=== PATIENT | female | born 1995 | race Caucasian/White ===

== ENCOUNTER 2023-10-19 04:50 | Emergency (ER) | payer BC ==
[~2023-10-19] VITALS: Ht 172.7 cm; Wt 95.5 kg
[2023-10-19 04:56] VITALS: TEMP 97.1
[2023-10-19] MEDS ORDERED: NS 1,000 ML IV ONE (05:15)
[2023-10-19] MEDS ORDERED: Dicyclomine 10 MG/ML 2 ML VIAL IM ONE (05:15)
[2023-10-19] MEDS ORDERED: Sucralfate Susp 1 GM/10 ML UD PO ONE (05:15)
[2023-10-19 06:01] LABS: BASO % 0.3 % (0.0-2.0); EOS % 0.3 % (0.0-4.0); GRAN # 7.3 K/mm3 (1.4-6.5); GRAN % 79.2 % (42.2-75.2); HEMATOCRIT 43.1 % (37.0-47.0); HEMOGLOBIN 14.4 g/dl (12.5-16.0); LYMPH # 1.3 K/mm3 (1.2-3.4); LYMPH % 14.1 % (20.0-51.0); MEAN CELL VOLUME 87 fl (80.0-100.0); MEAN CORPUSCULAR HEMOGLOBIN 29 pg (27-31); MEAN CORPUSCULAR HGB CONC 33 g/dl (33.0-37.0); MEAN PLATELET VOLUME 10.1 fl (7.4-10.4); MONO # 0.5 K/mm3 (0.1-0.6); MONO % 5.7 % (1.7-9.3); PLATELET COUNT 261 K/mm3 (130-400); RED BLOOD COUNT 4.95 M/mm3 (4.10-5.30); REDCELL DISTRIBUTION WIDTH-CV 12.5 % (11.5-14.5)
[2023-10-19 06:20] LABS: ALBUMIN 3.8 g/dL (3.5-5.0); BILIRUBIN,TOTAL 1.8 mg/dL (0.2-1.2); C-REACTIVE PROTEIN 0.39 mg/dL (0.00-0.50); CALCIUM 10.3 mg/dL (8.4-10.2); CREATININE, serum 0.85 mg/dL (0.57-1.11); POTASSIUM 3.8 mEq/L (3.5-4.5); TOTAL PROTEIN 7.5 g/dl (6.2-8.1)
[2023-10-19] MEDS ORDERED: NS 100 ML IV SCH (07:10)
[2023-10-19] MEDS ORDERED: Iohexol 300 - 100 ML VIAL IV ONE (07:12)
[2023-10-19 08:02] VITALS: BP 119/71; PULSE 52
== END 2023-10-19 08:16 | disposition left against medical advice (07) ==
LOC: COL.ER 04:50
PROVIDERS: Emergency Medicine
DX: E80.7 Disorder of bilirubin metabolism, unspecified (principal)
CPT/HCPCS: J0500; J2765; J7030; Q9967